=== PATIENT | female | born 1995 | race African-American/Black ===

== ENCOUNTER 2016-12-30 11:36 | Emergency (ER) | payer MEDICAID ==
[~2016-12-30] VITALS: Ht 162.6 cm; Wt 55.8 kg
--- NOTE | 2016-12-30 11:57 | Emergency Room Report ---
History of Present Illness General Chief Complaint: Complications Source: Patient Present Illness HPI This is 21-year-old female presented after having woke up this morning with the fluid on her underwear. Patient stated that she is at 26 weeks. She is approximately 26 weeks. Patient had reportedly had not been bleeding or having any change in movement. She denied any abdominal pain or contractions. The patient had not having any dizziness or lightheadedness. Patient says she otherwise feels well. Patient denied any prior history of urinary incontinence Allergies: Coded Allergies: No Known Allergies (Unverified , 12/30/16) Patient History Now: Yes Reviewed Nursing Documentation: PMH: Agreed, PSxH: Agreed Nursing Documentation-PMH Past Medical History: No Stated History Review of Systems All Other Systems: negative except mentioned in HPI Physical Exam Vital Signs Date Time Temp Pulse Resp B/P Pulse Ox O2 Delivery O2 Flow Rate FiO2 12/30/16 11:40 98.2 88 20 104/65 100 Room Air Sp02 EP Interpretation: reviewed, normal General Appearance: normal inspection, well appearing, no apparent distress, alert, GCS 15 Head: atraumatic ENT: normal ENT inspection, hearing grossly normal, normal voice Neck: normal inspection, full range of motion, supple, no bony tend Respiratory: normal inspection, lungs clear, normal breath sounds, no respiratory distress, no retraction, no wheezing Cardiovascular #1: regular rate, rhythm, no edema Gastrointestinal: normal inspection, normal bowel sounds, non tender, soft, no guarding, no hernia Genitourinary: no CVA tenderness Musculoskeletal: normal inspection, back normal, normal range of motion Neurologic: normal inspection, alert, responsive, speech normal Psychiatric: normal inspection, judgement/insight normal, mood/affect normal Skin: normal inspection, normal color, no rash Medical Decision Making Diagnostic Impression: Primary Impression: Complication of ER Course The patient presented for leakage of fluid. Differential diagnosis included was not limited to have labor, appears rupture of membranes, physiologic discharge, urinary incontinence among others.Because of complexity of patient's case laboratory testing and imaging studies were ordered. ultrasound was ordered and was noted to have normal heart tones with a rate of 152-166 the cervix is noted be closed estimated gestational age was 26 weeks. The amniotic fluid index 12.6. The patient was advised that she should have a pelvic exam to rule out premature rupture of membranes. The patient was advised risk benefits alternatives of exam including but not limited to have pelvic infection, premature labor, amniotic fluid leakage among others and she indicated understanding all questions are answered. The patient decided to leave AGAINST MEDICAL ADVICE. She is advised to see her [facility] ADMIN[facility] as soon as possible or to present to another facility for further evaluation of and that she would likely need admission if rupture of membranes had occurred. Last Vital Signs Date Time Temp Pulse Resp B/P Pulse Ox O2 Delivery O2 Flow Rate FiO2 12/30/16 11:40 98.2 88 20 104/65 100 Room Air Status: unchanged Disposition: AGAINST MEDICAL ADVICE Condition: Unknown Mario Albert December 30, 2016 11:57
[2016-12-30 12:56] LABS: BASOPHILS % (AUTO) 0.9 % (0.0-2.0); EOSINOPHILS % (AUTO) 0.7 % (0.0-3.0); LYMPHOCYTES % (AUTO) 15.5 % (20.0-45.0); MEAN CORPUSCULAR HEMOGLOBIN 29.3 PG (27.0-31.0); MEAN CORPUSCULAR HGB CONC 32.9 G/DL (32.0-36.0); MEAN CORPUSCULAR VOLUME 89 FL (80-99); MEAN PLATELET VOLUME 10.7 FL (6.5-10.1); MONOCYTES % (AUTO) 6.3 % (1.0-10.0); NEUTROPHILS % (AUTO) 76.7 % (45.0-75.0); PLATELET COUNT 128 K/UL (150-450); RED BLOOD COUNT 4.19 M/UL (4.20-5.40); WHITE BLOOD COUNT 7.6 K/UL (4.8-10.8)
[2016-12-30 13:13] LABS: ALANINE AMINOTRANSFERASE 23 U/L (3-33); ALBUMIN/GLOBULIN RATIO 1.2 (1.0-2.7); ANION GAP 15 (5-15); ASPARTATE AMINO TRANSFERASE 21 U/L (5-40); CALCIUM 9.5 mg/dL (8.6-10.2); CARBON DIOXIDE 24 mEQ/L (20-30); CHLORIDE 101 mEQ/L (98-107); CREATININE 0.5 mg/dL (0.5-0.9); GLOMERULAR FILTRATION RATE > 60 mL/min (>60); HEMOLYSIS 4; POTASSIUM 3.8 mEQ/L (3.4-4.9); SODIUM 140 mEQ/L (135-145); TOTAL PROTEIN 6.3 g/dL (6.6-8.7)
[2016-12-30 14:08] VITALS: BP 96/58
== END 2016-12-30 12:57 | disposition left against medical advice (07) ==
LOC: EMR 12:02
DX: O26.892 Other specified pregnancy related conditions, second trimester (principal); Z3A.26 26 weeks gestation of pregnancy; N89.8 Other specified noninflammatory disorders of vagina
CPT/HCPCS: 36415; 76805; 76810; 80053; 85025; 99284